=== PATIENT | female | born 1960 | race Caucasian/White ===

== ENCOUNTER 2020-03-02 06:30 | Outpatient (REF) | payer OTHER, SELFPAY | END 2020-03-02 06:31 | disposition home or self-care (01) | LOC: HO.LAB 06:30 | PROVIDERS: Visit Provider Internal Medicine | DX: Z20.828 Contact with and (suspected) exposure to other viral communicable diseases (principal) | CPT/HCPCS: 36415; C9803; U0003 ==

== ENCOUNTER 2024-03-31 13:51 | Emergency (ER) | payer MEDICARE, SELFPAY ==
--- NOTE | ~2024-03-31 | XR_ITS ---
EXAMINATION: XR ANKLE, LEFT CLINICAL INFORMATION: fall COMPARISON: None available. TECHNIQUE: AP, lateral, and mortise views of the left ankle. FINDINGS: No acute cortical disruption or malalignment. No metallic or radiopaque foreign body. Calcification at the Achilles tendon insertion. XR/XR ankle LT min 3V IMPRESSION: No acute fracture or dislocation. Enthesopathy, Achilles tendon. Electronically signed by: Armen Acosta MD 03/31/2024 02:39 PM EST
--- NOTE | ~2024-03-31 | CT_ITS ---
EXAMINATION: CT CERVICAL SPINE WITHOUT CONTRAST CLINICAL INFORMATION: Status post fall COMPARISON: None available. TECHNIQUE: Contiguous axial images through the cervical spine using 3 mm collimation with bone and soft tissue algorithm. Sagittal and coronal reformatted images acquired. This CT examination was performed using dose optimization techniques as appropriate, variously including the following: *Automated exposure control *Adjustment of mA and/or kV according to patient size (this includes techniques or standardized protocols for targeted exams where dose is matched to indication/reason for exam; i.e. extremities or head) *Use of iterative reconstruction technique DLP: 295.21 mGy centimeter. FINDINGS: Limited by patient's motion artifact. Marginal osteophyte formation, endplate sclerosis, subchondral cyst formation and decreased intervertebral disc height at C3-4, C4-5 and to a lesser extent C5-6 level. Craniocervical junction is intact. No gross malalignment through the vertebral bodies or the facet joints. C1 is intact. C2 is intact. C3 is grossly intact. C4 is grossly intact. C5 is grossly intact. C6 is grossly intact. C7 is grossly intact. No prevertebral compartment hematoma. Tympanic cavities and mastoid cells are aerated. Calcified plaques in the cavernous segments both ICA. CT/CT cervical spine wo IV con IMPRESSION: Limited by patient's motion artifact demonstrated multilevel cervical spondylosis C3 C6 without acute fracture or gross listhesis. If patient's symptoms persist recommend noncontrast MRI cervical spine. Fleischner guidelines were followed. Electronically signed by: Armen Acosta MD 03/31/2024 03:45 PM [facility]
--- NOTE | ~2024-03-31 | CT_ITS ---
EXAMINATION: CT HEAD WITHOUT CONTRAST CLINICAL INFORMATION: Fall, head strike COMPARISON: None available. TECHNIQUE: Contiguous axial imaging was performed from the skull base to vertex without intravenous administration of contrast. This CT examination was performed using dose optimization techniques as appropriate, variously including the following: *Automated exposure control *Adjustment of mA and/or kV according to patient size (this includes techniques or standardized protocols for targeted exams where dose is matched to indication/reason for exam; i.e. extremities or head) *Use of iterative reconstruction technique FINDINGS: There is extremely subtle hyperdensity in the right parietal sulci, findings suspicious for subtle subarachnoid hemorrhage (series 4, image 12). No evidence of hypoattenuating contusion. There is no evidence of extra-axial fluid collection. There is no mass effect, or edema. No CT evidence of acute territorial infarct. Ventricles, sulci, and cisterns are normal in size and configuration for patient age. No hydrocephalus. No midline shift. No significant white matter abnormalities. Globes and orbital contents image normally. No extracranial soft tissue abnormalities. The paranasal sinuses, mastoid air cells, and tympanic cavities are normally aerated. No suspicious bony abnormalities. No fractures evident. CT/CT head/brain wo IV con IMPRESSION: 1. Subtle subarachnoid hemorrhage suspected right parietal lobe. No additional intracranial hemorrhage, contusive injury, or extra-axial fluid collection. 2. No fractures evident. Findings the communicated to Estefany Lockwood PA-C of the [facility] via secure text at 3:50 PM, 03/31/2024. Electronically signed by: Krish Pack MD 03/31/2024 03:53 PM [facility]
--- NOTE | ~2024-03-31 | XR_ITS ---
EXAMINATION: XR FOOT, LEFT CLINICAL INFORMATION: fall COMPARISON: None available. TECHNIQUE: AP, lateral, and oblique views of the left foot. FINDINGS: No acute cortical disruption or malalignment. Calcification at the Achilles tendon insertion. No lytic or blastic lesions. Degenerative changes in the proximal and distal interphalangeal joints of the toes. XR/XR foot LT min 3V IMPRESSION: No acute fracture or dislocation. Electronically signed by: Armen Acosta MD 03/31/2024 02:40 PM [facility]
--- NOTE | ~2024-03-31 | XR_ITS ---
EXAMINATION: XR KNEE, LEFT CLINICAL INFORMATION: fall COMPARISON: None available. TECHNIQUE: Four views of the left knee. FINDINGS: No acute cortical disruption or malalignment. No suprapatellar bursa joint effusion. No lytic or blastic lesions. Osteopenia versus osteoporosis. XR/XR knee LT 3V IMPRESSION: No acute fracture or dislocation. Electronically signed by: Armen Acosta MD 03/31/2024 02:41 PM EST
[2024-03-31 13:54] VITALS: BP 128/82; PULSE 78; O2SAT 98
[2024-03-31 14:12] VITALS: BP 91/67; PULSE 81; RESP 18; TEMP 36.7; O2SAT 97; BMI 25.7
--- NOTE | 2024-03-31 14:12 | ED_ITS ---
HPI - Fall General Chief Complaint: Fall Stated Complaint: MCH FALL, -THINNERS, -LOC, L KNEE ABRASION Time Seen by Provider: 03/31/24 16:09 Source: patient Mode of arrival: ambulatory Limitations: no limitations History of Present Illness ED Provider: Nicola Leong HPI Narrative: 63-year-old female history of Parkinson disease presents to ED for headache after tripping while walking dog outside. Patient states his left ankle got stuck and got twisted and she fell onto her head. Patient denies any loss of consciousness. Patient states Related Data Allergies Allergy/AdvReac Type Severity Reaction Status Date / Time No Known Allergies Allergy Verified 03/31/24 14:15 Review of Systems 2 Review of Systems: headache, left annkle and left knee pain Yes all other systems are reviewed and are negative PMFSH Social History Social History Smoked in Last 30 Days: No Use of substances other than those prescribed or required for medical reasons: No Advance Directives: No Advance Directives Information Provided: No Do you have a plan to hurt others: No Plan Physical Exam 2 Vital Signs: Vital Signs: Last Vital Signs Temp 98.2 F 03/31/24 17:38 Pulse 84 03/31/24 17:38 Resp 20 03/31/24 17:38 BP 102/68 03/31/24 17:38 Pulse Ox 98 03/31/24 17:38 O2 Del Method Room Air 03/31/24 17:38 BMI result Body Mass Index 25.7 Const: General: cooperative, healthy appearing, comfortable, no acute distress, well developed, alert, awake and Physically active O rientation/consciousness: oriented to person, oriented to place and oriented to time HEENT: Head: Yes normal to inspection, Yes No palpable skull fracture present, Yes normocephalic and Yes atraumatic Ears: hearing grossly normal bilaterally, external ears normal, TM's normal bilaterally, TM normal on the right, TM normal on the left, EAC's normal, mastoids normal and no periauricular adenopathy Throat: Yes posterior oropharynx normal, Yes tonsils normal and Yes uvula midline Eyes: General: appearance normal, both eyes and all related structures Neck: Neck: Yes normal visual inspection, Yes full ROM, Yes no lymphadenopathy, Yes no meningeal signs, Yes trachea midline, Yes supple, No anterior neck swelling and No tender Chest: Chest palpation & inspection: normal inspection of the chest and normal palpation of entire chest wall Resp: Effort & Inspection: normal respiratory effort and able to speak in complete sentences Auscultation: clear to auscultation bilaterally Cardio: Jugular venous distension: no JVD Heart sounds: S1 normal heart sound present and S2 normal heart sound present GI: Inspection: Yes normal to inspection Palpation (GI): Soft to palpation, not firm, nontender, no guarding and not rigid : General: Yes no CVA tenderness Back/Spine/Pelvis: Back: no CVA tenderness and No back tenderness Skin: General skin exam: no rashes or lesions noted, elasticity normal and turgor normal Neuro: General: oriented to person, oriented to place, oriented to time, tone normal, moves all extremities, Normal light touch and pain sensation, no meningeal signs, no focal motor deficits, CN's II-XI intact bilaterally and normal sensation to monofilament Extrem: General: Yes normal to inspection, Yes full ROM and Yes capillary refill normal Knee images: 1. Positive for abrasions. Negative for tenderness ecchymosis or deformity. Ankle/foot/toe images: 1. Positive for tenderness on palpation. Negative for crepitus, ecchymosis, deformity. Negative for erythema. Vascular motor neuro exam intact Psych: Appearance: grossly normal, well kempt and not disheveled Course Course Course Narrative: This is a Rapid Medical Exam performed in triage by Estefany Lockwood PA-C. Full HPI, ROS and PE to be performed by primary ED provider. 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 +head strike, denies LOC, +EUCEDA. Saw stars initially, was aided by friend to feet. denies EUCEDA/lightheadedness now PE: in wheelchair, +abrasion to L knee. +mild swelling to L ankle. NV intact Plan: Head/C-spine CT, XRs Medical Decision Making Medical Decision Making MDM Narrative: 63-year-old female history of Parkinson's presents to ED for fall. Extremity x- rays negative for fracture. Head CT scan positive for subtle small arachnoid hemorrhage. GCS 15. Negative for any neuro deficits. Case was discussed with trauma surgeon from [facility] Dr. Castro who accepted the case recommend patient be transferred to the ED for re-evaluation and re CT scan. Patient agreeable with plan. Differential Diagnosis Differential Diagnoses: The differential diagnosis associated with the presentation includes (Brain bleed neck fracture) Admission/Observation Consideration of admission/observation: Escalation of care including admission/observation considered Consult Healthcare Provider Management of the patient was discussed with: Boiler/Chiller Operator (Dr. Castro [facility] Trauma) Lab Data MDM Lab Attestation statement: I reviewed the patient's lab results. 03/31/24 16:12 03/31/24 16:11 Labs: Lab Results 03/31/24 03/31/24 Range/Units 16:11 16:12 WBC 11.1 H (4.8-10.8) X10*3/uL RBC 4.81 (4.20-5.50) X10*6/uL Hgb 13.5 (12.0-16.0) g/dl Hct 40.8 (37.0-47.0) % MCV 84.8 (80.0-98.0) fL MCH 28.1 (27.0-33.0) pg MCHC 33.1 (31.0-35.0) g/dl RDW 12.9 (11.0-16.0) % Plt Count 329 (160-400) X10*3/uL MPV 10.1 (9.4-12.3) fL Immature Gran % (Auto) 0.5 H (0.0-0.4) % Neut % (Auto) 67.7 (45-73) % Lymph % (Auto) 21.8 (20-40) % Gilliam % (Auto) 6.8 (2-11) % Eos % (Auto) 2.5 (0-4) % Baso % (Auto) 0.7 (0-2) % Lymph # (Auto) 2.4 (1.2-4.9) X10*3/uL Gilliam # (Auto) 0.8 (0.1-1.2) X10*3/uL Eos # (Auto) 0.3 (0.0-0.4) X10*3/uL Baso # (Auto) 0.1 (0.0-0.2) X10*3/uL Abs Immat Gran (auto) 0.05 H (0.00-0.03) X10*3/uL Absolute Neuts (auto) 7.5 (2.0-8.3) x10*3/uL Absolute Nucleated RBC 0.000 (0.0-0.012) X10*3/uL Nucleated RBC % (auto) 0.0 (0.0-0.2) /100WBC PT 11.3 (10.9-12.4) SEC INR 1.0 (0.9-1.1) Sodium 135 (135-145) mmol/L Potassium 3.8 (3.3-5.1) mmol/L Chloride 104 (96-108) mmol/L Carbon Dioxide 22 (22-29) mmol/L Anion Gap 13 (12-20) BUN 12 (9-16) mg/dL Creatinine 0.65 (0.5-1.4) mg/dL Estim Creat Clear Calc 81.8 Estimated GFR > 60 Random Glucose 105 (60-115) mg/dL Calcium 9.1 (8.4-10.2) mg/dL Total Bilirubin 0.4 (0.0-1.0) mg/dL Direct Bilirubin 0.1 (0.0-0.5) mg/dL AST 21 (5-31) U/L ALT < 6 (0-31) U/L Alkaline Phosphatase 70 (39-117) U/L Total Protein 7.2 (6.5-8.0) g/dL Albumin 4.3 (3.5-5.0) g/dL Independent Interpretation I performed an independent interpretation of an: Plain X-Ray and CT Scan Radiology Impression Discussion of test interpretation with radiology: I have reviewed the radiologist's reading. Radiologist Impression: [place] [address] CT Scan Report Signed Patient: Argelia Medina MR#: [id number] : 1960 Acct:[id number] Age/Sex: 63 / F ADM Date: 03/31/24 Loc: HO.ED Attending Dr: Ordering Physician: Estefany Lockwood Date of Service: 03/31/24 Procedure(s): CT head/brain wo IV con Accession Number(s): [id number] cc: Estefany Lockwood~ Report Number: [id number]: Total DLP = 549.70 mGy-cm EXAMINATION: CT HEAD WITHOUT CONTRAST CLINICAL INFORMATION: Fall, head strike COMPARISON: None available. TECHNIQUE: Contiguous axial imaging was performed from the skull base to vertex without intravenous administration of contrast. This CT examination was performed using dose optimization techniques as appropriate, variously including the following: *Automated exposure control *Adjustment of mA and/or kV according to patient size (this includes techniques or standardized protocols for targeted exams where dose is matched to indication/reason for exam; i.e. extremities or head) *Use of iterative reconstruction technique FINDINGS: There is extremely subtle hyperdensity in the right parietal sulci, findings suspicious for subtle subarachnoid hemorrhage (series 4, image 12). No evidence of hypoattenuating contusion. There is no evidence of extra-axial fluid collection. There is no mass effect, or edema. No CT evidence of acute territorial infarct. Ventricles, sulci, and cisterns are normal in size and configuration for patient age. No hydrocephalus. No midline shift. No significant white matter abnormalities. Globes and orbital contents image normally. No extracranial soft tissue abnormalities. The paranasal sinuses, mastoid air cells, and tympanic cavities are normally aerated. No suspicious bony abnormalities. No fractures evident. CT/CT head/brain wo IV con IMPRESSION: 1. Subtle subarachnoid hemorrhage suspected right parietal lobe. No additional intracranial hemorrhage, contusive injury, or extra-axial fluid collection. 2. No fractures evident. Findings the communicated to Estefany Lockwood PA-C of the [facility] via secure text at 3:50 PM, 03/31/2024. Electronically signed by: Krish Pack MD 03/31/2024 03:53 PM [facility] Dictated By: Krish Pack MD Signed By: <Electronically signed by Krish Pack MD in OV> 03/31/24 1553 DD/ 1508 TD/TT: 03/31/24 1541 Automatic Fabric Cutter: [address] [address] [address] Scan Report Signed Patient: Argelia Medina MR#: [id number] : 1960 Acct:[id number] Age/Sex: 63 / F ADM Date: 03/31/24 Loc: HO.ED Attending Dr: Ordering Physician: Estefany Lockwood Date of Service: 03/31/24 Procedure(s): CT cervical spine wo IV con Accession Number(s): [id number] cc: Estefany Lockwood~ Report Number: [id number]: Total DLP = 295.21 mGy-cm EXAMINATION: CT CERVICAL SPINE WITHOUT CONTRAST CLINICAL INFORMATION: Status post fall COMPARISON: None available. TECHNIQUE: Contiguous axial images through the cervical spine using 3 mm collimation with bone and soft tissue algorithm. Sagittal and coronal reformatted images acquired. This CT examination was performed using dose optimization techniques as appropriate, variously including the following: *Automated exposure control *Adjustment of mA and/or kV according to patient size (this includes techniques or standardized protocols for targeted exams where dose is matched to indication/reason for exam; i.e. extremities or head) *Use of iterative reconstruction technique DLP: 295.21 mGy centimeter. FINDINGS: Limited by patient's motion artifact. Marginal osteophyte formation, endplate sclerosis, subchondral cyst formation and decreased intervertebral disc height at C3-4, C4-5 and to a lesser extent C5-6 level. Craniocervical junction is intact. No gross malalignment through the vertebral bodies or the facet joints. C1 is intact. C2 is intact. C3 is grossly intact. C4 is grossly intact. C5 is grossly intact. C6 is grossly intact. C7 is grossly intact. No prevertebral compartment hematoma. Tympanic cavities and mastoid cells are aerated. Calcified plaques in the cavernous segments both ICA. CT/CT cervical spine wo IV con IMPRESSION: Limited by patient's motion artifact demonstrated multilevel cervical spondylosis C3 C6 without acute fracture or gross listhesis. If patient's symptoms persist recommend noncontrast MRI cervical spine. Fleischner guidelines were followed. Electronically signed by: Armen Acosta MD 03/31/2024 03:45 PM [facility] Dictated By: Armen Diana MD Signed By: <Electronically signed by Armen Solo MD in OV> 03/31/24 1545 DD/ 1508 TD/TT: 03/31/24 1540 Automatic Fabric Cutter: [place] [address] XRay Report Signed Patient: Argelia Medina MR#: [id number] : 1960 Acct:[id number] Age/Sex: 63 / F ADM Date: 03/31/24 Loc: HO.ED Attending Dr: Ordering Physician: Estefany Lockwood Date of Service: 03/31/24 Procedure(s): XR foot LT min 3V Accession Number(s): [id number] cc: Estefany Lockwood~ EXAMINATION: XR FOOT, LEFT CLINICAL INFORMATION: fall COMPARISON: None available. TECHNIQUE: AP, lateral, and oblique views of the left foot. FINDINGS: No acute cortical disruption or malalignment. Calcification at the Achilles tendon insertion. No lytic or blastic lesions. Degenerative changes in the proximal and distal interphalangeal joints of the toes. XR/XR foot LT min 3V IMPRESSION: No acute fracture or dislocation. Electronically signed by: Armen Acosta MD 03/31/2024 02:40 PM EST Dictated By: Armen Diana MD Signed By: <Electronically signed by Armen Solo MD in OV> 03/31/24 1440 DD/ 1414 TD/TT: 03/31/24 1434 Automatic Fabric Cutter: [address] [address] XRay Report Signed Patient: Argelia Medina MR#: [id number] : 1960 Acct:[id number] Age/Sex: 63 / F ADM Date: 03/31/24 Loc: HO.ED Attending Dr: Ordering Physician: Estefany Lockwood Date of Service: 03/31/24 Procedure(s): XR ankle LT min 3V Accession Number(s): [id number] cc: Estefany Lockwood~ EXAMINATION: XR ANKLE, LEFT CLINICAL INFORMATION: fall COMPARISON: None available. TECHNIQUE: AP, lateral, and mortise views of the left ankle. FINDINGS: No acute cortical disruption or malalignment. No metallic or radiopaque foreign body. Calcification at the Achilles tendon insertion. XR/XR ankle LT min 3V IMPRESSION: No acute fracture or dislocation. Enthesopathy, Achilles tendon. Electronically signed by: Armen Acosta MD 03/31/2024 02:39 PM EST Dictated By: Armen Diana MD Signed By: <Electronically signed by Armen Solo MD in OV> 03/31/24 1439 DD/ 1414 TD/TT: 03/31/24 1434 Automatic Fabric Cutter: Independent Historian Clinical information obtained from an independent historian. History obtained from or confirmed by: Other (patient) Critical Care Time Critical Care Time Critical Care Time: Yes Total Critical Care Time: 60 Attestation: Patient's CT scan results show subtle subarachnoid hemorrhage in the parietal lobe. GCS 15. Negative for any neuro deficits. Case discussed with [facility] surgeon Dr. Castro trauma surgeon recommend patient be transferred to ED of [facility] for evaluation. Patient transferred to based Discharge Plan Discharge Clinical Impression: Subarachnoid hemorrhage Patient Disposition: Xfer Acute Care Hospital Transfer Details: [facility] Emergency Department Instructions: Subarachnoid Hemorrhage (DC) Referrals: Conrado Olivia MD [Primary Care Provider] - Interventions: Acute Care Transfer Worksheet (ED) Last Done: 03/31/24 17:38 Discharge Date/Time: 03/31/24 17:39 Print Language: Niuean
[2024-03-31 16:26] LABS: MANUAL DIFF FLAG NO
[2024-03-31 16:28] LABS: Basophils Absolute Auto 0.1 X10*3/uL (0.0-0.2); Basophils Percent Auto 0.7 % (0-2); Eosinophils Absolute Auto 0.3 X10*3/uL (0.0-0.4); Eosinophils Percent Auto 2.5 % (0-4); Hematocrit 40.8 % (37.0-47.0); Hemoglobin 13.5 g/dl (12.0-16.0); Imm Gran Abs Auto 0.05 X10*3/uL (0.00-0.03); Imm Gran Pct Auto 0.5 % (0.0-0.4); Lymphocytes Absolute Auto 2.4 X10*3/uL (1.2-4.9); Lymphocytes Percent Auto 21.8 % (20-40); Mean Corpuscular HGB Conc 33.1 g/dl (31.0-35.0); Mean Corpuscular Hemoglobin 28.1 pg (27.0-33.0); Mean Corpuscular Volume 84.8 fL (80.0-98.0); Mean Platelet Volume 10.1 fL (9.4-12.3); Monocytes Absolute Auto 0.8 X10*3/uL (0.1-1.2); Monocytes Percent Auto 6.8 % (2-11); Neutrophils Absolute Auto 7.5 x10*3/uL (2.0-8.3); Neutrophils Percent Auto 67.7 % (45-73); Platelet Count 329 X10*3/uL (160-400); Red Blood Count 4.81 X10*6/uL (4.20-5.50); Red Cell Distribution Width 12.9 % (11.0-16.0); White Blood Count 11.1 X10*3/uL (4.8-10.8)
[2024-03-31 16:40] LABS: Prothrombin Time 11.3 SEC (10.9-12.4)
[2024-03-31 16:43] LABS: Alanine Aminotransferase < 6 U/L (0-31); Albumin Level 4.3 g/dL (3.5-5.0); Alkaline Phosphatase 70 U/L (39-117); Anion Gap 13 (12-20); Aspartate Amino Transferase 21 U/L (5-31); Bilirubin Direct 0.1 mg/dL (0.0-0.5); Bilirubin Total 0.4 mg/dL (0.0-1.0); Blood Urea Nitrogen 12 mg/dL (9-16); Calcium 9.1 mg/dL (8.4-10.2); Carbon Dioxide 22 mmol/L (22-29); Chloride 104 mmol/L (96-108); Creatinine Clr Calc Pharmacy 81.8; Estimated Glomerular Filt Rate > 60; Glucose Random 105 mg/dL (60-115); Potassium 3.8 mmol/L (3.3-5.1); Sodium 135 mmol/L (135-145); Total Protein 7.2 g/dL (6.5-8.0)
--- NOTE | 2024-03-31 16:48 | PC.NURSE ---
patient aaxo3 speaking clear full sentences and follows all commands.. pt NINO. +strength, movement in all 4 extremities. pt no tongue deviation. patient only endorses pain to left knee. abrasion noted to chin and left knee. bleeding controlled. patient denies any other pain.
--- OUTSIDE RECORDS SUMMARY | 2024-03-31 17:18 | XMS_ITS | Clinical Summary ---
Author Organization [facility] Address [address] [place] [address] Care Team Providers Care Lead Trainer Name Role Phone Conrado Olivia Primary Care Provider [phone] Allergies No known active allergies Medications simvastatin (ZOCOR) 40 mg tablet TAKE 1 TABLET BY MOUTH DAILY BEFORE DINNER 3 12/02/2018 Active carbidopa-levodo pa (SINEMET) 25-100 mg per tabletIndication s:Parkinson's disease (HCC) TAKE 0.5 TABLET AT 4AM 1 TABLET AT 630AM 1 TABLET 1130AM 1 TABLET 530PM 315 tablet 3 09/24/2022 Active Active Problems Problem Noted Date Diagnosed Date Parkinsonism 03/13/2019 Gait abnormality 03/12/2019 Type 2 diabetes mellitus 03/12/2019 Other hyperlipidemia 03/12/2019 Family History Medical History Relation Name Comments Colon cancer Father Prostate cancer Father Ovarian cancer Mother Relation Name Status Comments Father Mother Social History Tobacco Use Types Packs/Day Years Used Date Smoking Tobacco: Never Smokeless Tobacco: Never Alcohol Use Standard Drinks/Week Comments Not Currently 0 (1 standard drink = 0.6 oz pur e alcohol) Comments Unknown Sex and Gender Information Value Date Recorded Sex Assigned at Female 02/07/2020 7:28 AM EST Legal Sex Female 1:46 PM EDT Gender Identity Female 02/07/2020 7:28 AM EST Sexual Orientation Straight 02/07/2020 7: 28 AM EST Last Filed Vital Signs Vital Sign Reading Time Taken Comments Blood Pressure 121/82 11/02/2021 3:03 PM EDT Pulse 91 11/02/2021 3:03 PM EDT Temperature 36.2 ??C (97.1 ??F) 11/02/2021 3:00 PM ED T Respiratory Rate 16 11/02/2021 3:00 PM EDT Oxygen Saturation - - Inhaled Oxygen Concentration - - Weight 71.2 kg (157 lb) 11/02/2021 3:00 PM EDT Height 162.6 cm (5' 4 ) 11/02/2021 3:00 PM EDT Body Mass Index 26.95 11/02/2021 3:00 PM EDT Plan of Treatment Health Maintenance Due Date Last Done Comments Basic Metabolic Panel 1960 Cervical Cancer Screening 1960 Cologuard 1960 Colon Cancer Screening 1960 Colonoscopy 1960 FOBT / Fit Test 1960 HIV Screening 1960 HPV and Pap Smear 1960 Hemoglobin A1C 1960 Hepatitis C Screening 1960 Pap Smear 1960 Sigmoidoscopy 1960 Ophthalmology Exam 1968 Urine Microalbumin 1968 Mammogram 1998 Pneumococcal Vaccine: 65+ Years (2 of 2 - PCV) 05/20/2008 05/21/2007 Osteoporosis Screening 2008 Zoster Vaccines (1 of 2) 2008 DTaP,Tdap,and Td Vaccines (2 - Td or Tdap) 08/16/2020 08/16/2010, 02/27/2000 COVID-19 Vaccine (4 - 2023-2 5 season) 2023 12/25/2020, 06/08/2020, 05/11/2020 Influenza Vaccine (#1) 2023 0, 06/08/2008, 01/29/2007 Alcohol/Substance Use Screening 02/27/2024 Depression Screening and Follow-Up 02/27/2024 Health Care Proxy Review 02/27/2024 Social Drivers of Health Annual Screening 02/27/2024 RSV Vaccine (60+ years old a nd patients) (1 - 1-dose 75+ series) 2033 Hepatitis B Vaccines Aged Out No long er eligible based on patient's age to complete this topic Insurance [facility] Care Teams Lead Trainer Relationship Specialty Start Date End Date Conrado Olivia [address] [place] [id number] PCP - General Internal Medicine 10/15/18
--- OUTSIDE RECORDS SUMMARY | 2024-03-31 17:18 | XMS_ITS | Encounter Summary ---
Author Organization [facility] Address [address] [place] [address] Care Team Providers Care Utilization Management Um Nurse Name Role Phone Conrado Olivia Primary Care Provider [phone] Encounter Details Date Type Department Care Team (Late st Contact Info) Description 09/29/2021 myChart Message [facility] [address] [place] [address] Gloria Aldridge MD [address] [place] [address] New Doctor Social History Tobacco Use Types Packs/Day Years [...] Orientation Straight 02/07/2020 7: 28 AM EST documented as of this encounter Plan of Treatment Not on file documented as of this encounter Visit Diagnoses Not on filedocumented in this encounter Care Teams Utilization Management Um Nurse Relationship Specialty Start Date End Date Conrado Olivia [address] [place] [address] PCP - General Internal Medicine 10/15/18 documented as of this encounter
--- OUTSIDE RECORDS SUMMARY | 2024-03-31 17:18 | XMS_ITS | Referral Summary ---
Author Organization [facility] Address [address] [place] [address] Care Team Providers Care Content Development Manager Name Role Phone Conrado Olivia Primary Care Provider [phone] Allergies No known active allergies Medications simvastatin [...] 2 diabetes mellitus 03/12/2019 Other hyperlipidemia 03/12/2019 Social History Tobacco Use Types Packs/Day Years [...] 11/02/2021 3:00 PM EDT Plan of Treatment Not on file Insurance [facility] Care Teams Content Development Manager Relationship Specialty Start Date End Date Conrado Olivia [address] [place] [address] PCP - General Internal Medicine 10/15/18
--- OUTSIDE RECORDS SUMMARY | 2024-03-31 17:18 | XMS_ITS | Encounter Summary ---
Author Organization [facility] Address [address] [place] [address] Care Team Providers Care Chain Splitter Name Role Phone Conrado Olivia Primary Care Provider [phone] Encounter Details Date Type Department Care Team (Late st Contact Info) Description 02/11/2020 Orders Only [facility] [address] [place], [place] [phone] Gloria Aldridge MD [address] [place] [address] Parkinson disease (CMS/HCC) (Primary Dx) Social History Tobacco Use Types Packs/Day Years [...] documented as of this encounter Visit Diagnoses Diagnosis Parkinson disease (HCC)- Primary Paralysis agitans documented in this encounter Care Teams Chain Splitter Relationship Specialty Start Date End Date Conrado Olivia [address] [place] [address] PCP - General Internal Medicine 10/15/18 documented as of this encounter
[2024-03-31 17:38] VITALS: BP 102/68; PULSE 84; RESP 20; TEMP 36.8; O2SAT 98
== END 2024-03-31 17:39 | disposition short-term general hospital (02) ==
PROVIDERS: Physician Assistant; Emergency Provider Emergency Medicine Emergency Medical Services; PCP Internal Medicine
DX: S06.6XAA Traumatic subarachnoid hemorrhage with loss of consciousness status unknown, initial encounter (principal); S80.212A Abrasion, left knee, initial encounter; M54.2 Cervicalgia; R51.9 Headache, unspecified; M25.562 Pain in left knee; W01.0XXA Fall on same level from slipping, tripping and stumbling without subsequent striking against object, initial encounter; Y93.K1 Activity, walking an animal; Y92.480 Sidewalk as the place of occurrence of the external cause; Y99.8 Other external cause status; Z79.899 Other long term (current) drug therapy
CPT/HCPCS: 36415; 70450; 72125; 73562; 73610; 73630; 80048; 80076; 85025; 85610; 99285

== ENCOUNTER → 2024-03-31 14:14 | Outpatient (BNV) | payer OTHER, SELFPAY | PROVIDERS: Visit Provider Radiology Diagnostic Radiology | DX: S19.9XXA Unspecified injury of neck, initial encounter (principal); S09.90XA Unspecified injury of head, initial encounter; S80.912A Unspecified superficial injury of left knee, initial encounter; S99.912A Unspecified injury of left ankle, initial encounter | CPT/HCPCS: 70450; 72125; 73562; 73610; 73630 ==

== ENCOUNTER 2024-09-11 09:20 | Outpatient (AMB) | payer MEDICARE, SELFPAY ==
--- NOTE | 2024-09-11 09:23 | A.OFFVIS_ITS ---
Vital Signs 09/11/24 09:23 Height 5 ft 4 in Intake Visit Reasons: 3m pd Allergies No Known Allergies Allergy (Verified 09/11/24 09:27) Medication List - Last Reconciled 09/11/24 by Nicole Prater CNP carbidopa-levodopa 25-100 mg 1 tab PO QID cholecalciferol (vitamin D3) 50 mcg PO DAILY gabapentin 300 mg PO BEDTIME rasagiline 1 mg PO DAILY simvastatin 40 mg PO QPM HPI Comments Details: She was doing okay. Tremor was off and on, most noticeable when sitting and relaxing. No functional impairment. No difficulty eating, drinking, or swallowing. She had few, occasional dyskinetic movements in right foot and hand that was not significantly bothersome. Appetite was okay. Gabapentin was helping with sleep. Episodes of kicking, yelling, or acting out dreams not happening as often since starting medication. May have episode 1-3x/month. About 4-5 weeks ago, was having vivid dream and fell out of bed. Moved bed onto floor. No trouble getting up from bed. Completed PT for R frozen shoulder. She was going to gym and doing exercise classes. Tripped and fell last month. 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 Previously acting out her dreams, kicking, has rolled out of bed, and woke family member screaming, does not feel rested when she wakes. Tripped and fell on uneven sidewalk walking her dog in 03/2024, seen at [facility]. She started dragging her right leg about 2017 and then some abnormal posturing in the right hand. She had a normal MRI of the brain and was subsequently diagnosed as having Parkinson's disease and has been followed by the neurology department at [facility]. She was on carbidopa levodopa 25/100 x 3 times a day for 3 years and the dose was increased in 10/2021 4 times a day. When she first started it she noticed a significant improvement in her walking and dragging the right foot and now notices that the symptoms come back to worse the end of the dose. She gets intermittent tremor in the right hand when she is resting but it's not consistent. She occasionally loses her balance. She has no speech impediment no trouble swallowing. No left-sided symptoms. She exercises and walks 10-15,000 steps and she does water exercises 2-3 days a week and yoga once a week. She lives that the [facility]. [facility] Medical History (Updated 09/11/24 @ 09:27 by Nicole Prater CNP) REM sleep behavior disorder Dystonia HLD (hyperlipidemia) Parkinsons disease Family History (Updated 09/11/24 @ 09:53 by Nicole Prater CNP) Brother Parkinsons disease Review of Systems Const Denies chills, Denies daytime sleepiness, Denies difficulty sleeping, Denies fatigue, Denies fever(s), Denies frequent falls, Denies headache(s), Denies increased appetite, Denies poor appetite, Denies snoring, Denies weakness, Denies weight gain and Denies weight loss Eyes Denies loss of vision ENT Denies vertigo, Denies dizziness, Denies headache(s) and Denies neck pain Card Denies chest pain at rest, Denies chest pain with activity, Denies syncope, Denies leg edema, Denies palpitations, Denies dyspnea and Denies dyspnea on exertion Resp Denies cough, Denies dyspnea, Denies dyspnea on exertion and Denies snoring GI Denies abdominal pain, Denies constipation, Denies heartburn, Denies diarrhea and Denies nausea Denies urinary frequency, Denies urinary incontinence and Denies urinary urgency Musc Reports abnormal gait, Denies back pain, Denies myalgias, Denies arthralgias, Denies neck pain, Denies numbness and Denies tingling Neuro Reports abnormal gait, Denies vertigo, Denies dizziness, Denies syncope, Denies frequent falls, Denies headache(s), Denies lack of coordination, Denies loss of vision, Denies memory loss, Denies numbness, Denies Other visual disturbances, Denies restless legs, Denies seizure-like activity, Denies tingling, Denies paresthesias, Reports tremor(s) and Denies weakness Psych Denies anxiety, Denies depression, Denies auditory hallucinations, Denies memory loss and Denies visual hallucinations Endo Denies fatigue and Denies palpitations Physical Exam Const Other: General Appearance:? normal, in no acute distress. Heart:? S1, S2 normal, no murmurs. Lungs:? clear anteriorly and posteriorly. Musculoskeletal:? normal. Extremities:? no edema. Psych:? alert, oriented, cognitive function intact, cooperative with exam. Neuro Other: Abnormal Neurological Findings:?Subtle increase in tone in the right upper extremity. Occasional posturing of RUE. No tremor at rest or with sustained posture. Some dystonic posturing and clenching of the right hand and wrist in flexion when she walks. Slightly reduced arm swing on R side. Mildly reduced facial expressions and blinking frequency. Reduced ROM RUE. Few dyskinetic movements of R side Mental Status: alert and oriented X 3. Normal attention, orientation, memory, and affect. Cranial Nerves: Pupils are equal, round, and reactive to light. External ocular muscles are intact. Visual duron are full, no ptosis. Face is symmetrical, no facial weakness or droop. Facial sensations are normal. Tongue protrudes in midline. Palate elevates symmetrically. Shoulder shrugging is normal Motor Examination: Normal muscle tone, bulk and strength. No atrophy or fasciculations. No drift of the extended upper extremities. DTR 2+. Plantars are flexor. Straight Leg Raisin degrees. Sensory Exam: Normal light touch, temperature, pinprick, vibration, and joint- position sensations. Rhomberg sign is absent. Coordination: No ataxia. No titubation. Hzqugy-zp-alxz, zzlp-fcmc-xmcl test, and rapid alternating movements were normal. Gait Exam: Reduced R arm swing Cerebellar Signs: [id number]-[id number] and zknn-pa-tysd is normal. No dysdiad ochokinesia. Extrapyramidal System: Slight intermittent dystonic posturing of right hand and wrist. No tremor or rigidity. Mildly reduced facial expressions and blinkly frequency.?No bradykinesia, no bradyphrenia.?Slightly reduced arm swing on R?side. Speech: Normal. No dysphasia or dysarthria. Assessment & Plan Assessment & Plan (1) Parkinsons disease: Code(s): G20.A1 - Parkinson's disease without dyskinesia, without mention of fluctuations Category: Medical Qualifiers: Dyskinesia presence: with dyskinesia Fluctuating manifestations: unspecified whether manifestations fluctuate Qualified Code(s): G20.B1 - Parkinson's disease with dyskinesia, without mention of fluctuations Plan: Continue carbidopa-levodopa 25-100mg alternate 1 tab with 1.5 tabs for total of 4 doses/day (total of 5 tabs/day). She was educated on possible side effects of medication and discussed option of reducing dose, declining at this time. Continue rasagiline 1mg 1 tablet daily. Continue to stay physically active. (2) REM sleep behavior disorder: Code(s): G47.52 - REM sleep behavior disorder Category: Medical Plan: Continue gabapentin 300mg 1 capsule at bedtime. (3) Dystonia: Code(s): G24.9 - Dystonia, unspecified Category: Medical Plan: . Coding Level of Care Code Est Pt Level 4 (98117) Diagnoses Parkinson's disease with dyskinesia, unspecified whether manifestations fluctuate G20.B1 Dyskinesia presence: with dyskinesia Fluctuating manifestations: unspecified whether manifestations fluctuate REM sleep behavior disorder G47.52 Dystonia G24.9
--- OUTSIDE RECORDS SUMMARY | 2024-09-11 09:37 | XMS_ITS | Patient Health Record ---
Author Organization [facility] Address [address] [place] [address] Care Team Providers Care Manager Wellness Name Role Phone NICOLE OJEDA Primary Care Provider Sydnie Carey Unavailable [phone] Reason For Referral No Information Medications Medication SIG (Take, Route, Frequency, Duration) Notes Start Date End Date Status Simvastatin 40MG ORAL; Duration: -3 Ja-MJ 09/15/2013 Active Aspirin Adult Low Strength 81MG ORAL daily; Duration: -3 Ja-MJ 09/15/2013 Act shell Immunizations Vaccine Route Administration Date Status Comme nts Influenza, live, intranasal Unknown 09/15/2013 Pending Tdap Unknown 09/15/2013 Pending Problems Problem Type SNOMED Code ICD Code Onset Dates Problem Status W/U Status Risk Notes Problem Other and unspecified hyperlipidemia (272.4) Active confirmed Major Plan Of Treatment No Information Insurance Providers Payer Name Payer Address Payer Phone Subscriber Number Group Number Insured Name Patient Relationship to Insured Coverage Start Date Coverage End Date [employer] [place] [address] [address] [place] [address] [id number] SHARI BANUELOS Self - patient is the insured Medical (General) History Medical History History ICD Code Other and unspecified hyperlipidemia Surgical History Surgery Date(Month/Year) breast reduction ankle ligament reconstruction
--- OUTSIDE RECORDS SUMMARY | 2024-09-11 09:37 | XMS_ITS | Encounter Summary ---
Author Organization [facility] Address [address] [place] [address] Care Team Providers Care Vertical Borer Name Role Phone Conrado Olivia Primary Care Provider [phone] Encounter Details Date Type Department Care Team (Late st Contact Info) Description 02/11/2020 Orders Only [facility] [address] [place] [address] Gloria Aldridge MD [address] [place] [address] Parkinson disease (Primary Dx) Social History Tobacco Use Types [...] agitans documented in this encounter Care Teams Vertical Borer Relationship Specialty Start Date End Date Conrado Olivia [address] [place] [address] PCP - General Internal Medicine 10/15/18 documented as of this encounter
== END 2024-09-11 09:49 | disposition home or self-care (01) ==
LOC: HO.HSM 09:21
PROVIDERS: PCP Internal Medicine; Referring Provider Internal Medicine; Visit Provider Registered Nurse
DX: G20.B1 Parkinson's disease with dyskinesia, without mention of fluctuations (principal); G47.52 REM sleep behavior disorder; G24.9 Dystonia, unspecified
CPT/HCPCS: 99214

== ENCOUNTER → 2024-09-11 09:20 | Outpatient (BNVA) | payer MEDICARE, SELFPAY | PROVIDERS: PCP Internal Medicine; Referring Provider Internal Medicine; Visit Provider Registered Nurse | DX: G20.B1 Parkinson's disease with dyskinesia, without mention of fluctuations (principal); G47.52 REM sleep behavior disorder; G24.9 Dystonia, unspecified | CPT/HCPCS: 99212 ==